=== PATIENT | male | born 1980 | race Caucasian/White ===

== ENCOUNTER 2016-12-23 19:12 | Emergency (ER) | payer OTHER ==
[~2016-12-23 19:12] MED LIST: CLEOCIN HCL300 MG PO
[2016-12-23 23:33] LABS: HEMOGLOBIN 17.8 gm/dl (14.0-17.5); RED BLOOD COUNT 5.73 M/UL (4.20-5.50)
[2016-12-23 23:53] LABS: BUN/CREATININE RATIO 9 (0-10)
== END 2016-12-24 01:15 | disposition home or self-care (01) ==
LOC: ER1 19:12
PROVIDERS: Physician Assistant
DX: N13.2 Hydronephrosis with renal and ureteral calculous obstruction (principal); K76.0 Fatty (change of) liver, not elsewhere classified; I10 Essential (primary) hypertension; Z79.899 Other long term (current) drug therapy
CPT/HCPCS: 36415; 80053; 81001; 82150; 83605; 83690; 85025; 87086; 96361; 96374; 96375; 99284; J1885; J2270; J2405